=== PATIENT | female | born 1970 | race Caucasian/White ===

== ENCOUNTER → 2023-10-10 06:32 | Outpatient (REF) | payer OTHER, SELFPAY | LOC: HWWDC 06:32 | PROVIDERS: ATTENDING PHYSICIAN Obstetrics & Gynecology; FAMILY PHYSICIAN Nurse Practitioner Family | DX: Z12.31 Encounter for screening mammogram for malignant neoplasm of breast (principal) | CPT/HCPCS: 77063; 77067 ==

== ENCOUNTER → 2024-03-05 09:13 | Outpatient (REF) | payer OTHER, SELFPAY | LOC: HWRAD 09:13 | PROVIDERS: ATTENDING PHYSICIAN Obstetrics & Gynecology; FAMILY PHYSICIAN Nurse Practitioner Family | DX: R10.2 Pelvic and perineal pain (principal) | CPT/HCPCS: 76830; 76856 ==

== ENCOUNTER → 2024-03-12 13:48 | Outpatient (REF) | payer OTHER, SELFPAY | LOC: WDC 13:48 | PROVIDERS: ATTENDING PHYSICIAN Obstetrics & Gynecology; FAMILY PHYSICIAN Nurse Practitioner Family | DX: N64.4 Mastodynia (principal) | CPT/HCPCS: 76642 ==

== ENCOUNTER 2024-04-08 06:21 | Day surgery (SDC) | payer OTHER, SELFPAY ==
[2024-04-08] VITALS (11 sets, daily range): BP systolic 112–134; BP diastolic 48–80; BMI 28.4
[2024-04-08] MEDS: NORMOSOL-R/PLASMALYTE-A 1000 IV (09:01)
[2024-04-08] MEDS: SUBLIMAZE 25 MCG IV (12:11)
[2024-04-08] MEDS: TYLENOL 650 MG PO (13:37)
== END 2024-04-08 13:57 | disposition home or self-care (01) ==
LOC: SDS 06:21
PROVIDERS: ATTENDING PHYSICIAN Obstetrics & Gynecology
DX: N92.4 Excessive bleeding in the premenopausal period (principal); D26.0 Other benign neoplasm of cervix uteri
CPT/HCPCS: 58558; 88305; 88341; 88342

== ENCOUNTER 2024-07-17 10:28 | Emergency (ER) | payer OTHER, SELFPAY ==
[2024-07-17 10:31] VITALS: BP 133/113
[2024-07-17 10:41] VITALS: BP 124/102
[2024-07-17] MEDS: ADENOCARD 6 MG IV (10:45)
[2024-07-17 10:49] VITALS: BP 139/91
--- NOTE | 2024-07-17 10:57 | ED.GENMED ---
History of Present Illness
General
Chief Complaint: Heart Rate Problem
Source: patient
Exam Limitations: none
Time Seen by Provider: 07/17/24 10:44
History of Present Illness
History of Present Illness:
this is a 53yo female who presents with feeling like her SVT is 'acting up'. states she has been feeling ill for last couple days and tested positive for covid on monday. no noted fevers but she did have chills. Patient states that her worst day
was 2 days ago. Does have a history of SVT and has had an ablation. Was on meds in the past really did not work much. She has had to have adenosine in the past maybe up to 3 times. Does not feel short of breath
Past History
Past History
ED Past Medical History: Arrthythmia (SVT) and Psychiatric (anxiety)
Social History
Tobacco: Non-smoker
Employment: Employed
Phy Exam
Physical Exam
Physical Exam:
CONSTITUTIONAL Patient alert and oriented to person, place and time. Well-appearing. Vital signs reviewed.
HEAD atraumatic, normocephalic.
EYES eyelids normal to inspection, Extraocular muscles intact, Conjunctiva normal, Sclera normal.
NECK normal range of motion, Trachea midline, no jugular venous distention.
RESPIRATORY CHEST No respiratory distress noted, Chest expansion equal, Bilateral breath sounds clear.
CARDIOVASCULAR regular and tachycardic
UPPER EXTREMITY range of motion normal, Motor strength normal, no cyanosis, no edema.
LOWER EXTREMITY range of motion normal, Motor strength normal, no cyanosis, no edema.
NEURO Speech normal, No focal motor deficits, Juan Luis coma scale 15, Memory normal, Cranial Nerves intact to screening exam.
SKIN skin warm, dry, and normal in color.
Course
Orders/Labs/Results
Orders:
Orders
07/17/24 10:29
Electrocardiogram (*1) Urgent
Reason for Study: Palpitations
EKG- Treatment ONCE
07/17/24 10:45
Adenosine [Adenocard] 18 mg .ROUTE .STK-MED ONE
07/17/24 10:50
EKG [Electrocardiogram (*1)] Urgent
Reason for Study: Tachycardia
07/17/24 10:51
EKG- Treatment ONCE
0.9% Sodium Chloride 1000 ml [Nss] 1,000 ml IV BOLUS
07/17/24 11:00
Complete Blood Count/With Diff Urgent
Comprehensive Metabolic Panel Urgent
Magnesium Urgent
07/17/24 11:01
Adenosine [Adenocard] 6 mg IV NOW STA
Abnormal Lab Results
07/17/24
11:00
MPV 11.8 H fL
(7.4-10.4)
Absolute Monos (auto) 1.0 H 10^3/uL
(0.1-0.6)
Monocytes % 14.5 H %
(1.7-9.3)
Glucose 131 H mg/dl
(70-99)
AST 45 H U/L
(14-36)
ALT 46 H U/L
(0-35)
07/17/24 11:00
07/17/24 11:00
Vital Signs
Initial and Last Documented VS:
Initial Vital Signs
Temp Pulse Resp BP Pulse Ox
98.1 F 199 18 133/113 100
07/17/24 10:31 07/17/24 10:31 07/17/24 10:31 07/17/24 10:31 07/17/24 10:31
Last Documented Vital Signs
Temp Pulse Resp BP Pulse Ox
98.1 F 101 14 139/91 99
07/17/24 10:31 07/17/24 11:01 07/17/24 10:49 07/17/24 10:49 07/17/24 11:16
MDM/Problems Addressed
Differential Diagnosis Includes:
A-fib, SVT, electrolyte imbalance, hypoxia, pulmonary embolism
MDM/Problems Addressed:
SVT, COVID-19
*Pulse Oximetry
Patient hypoxic: no
*EKG
Interpreted by ED Provider?: Yes
Interpretation: abnormal
Rate: tachycardiac
Rhythm: SVT
Ischemia: non-specific ST changes
*Relief Operator Interpretation
Rate: tachycardiac
Interpretation: abnormal
Rhythm: SVT
*Critical Care Note
Total Time (30-74mins, 75-104mins- exclusive of procedures): 30 minutes
Data Reviewed
Review of Other/Old Records Reveals: Testing (Echocardiogram reviewed from August 2018 showing ejection fraction 55 to 60%)
Source: patient
Prescriptions/Medications Considered But Not Given:
Considered AV block open patient has known history and will follow-up with a director digital
Patient Management
Escalation/DeEscalation of care consider admission/obs:
Considered admission. However, patient has now remained in normal sinus rhythm after given IV adenosine 6 mg. She converted shortly after administration. After period of observation she is stable and labs are unremarkable. Okay for discharge
ED Attending Note
-
Portions of this chart may have been created with voice recognition software.� Occasional wrong word or��sound alike� substitutions may have occurred due to the inherent limitations of voice recognition software.
Discharge Plan
Departure
Patient Disposition: Home (Routine Discharge)
Date of Disposition: 07/17/24
Time of Disposition: 11:42
Patient with high blood pressure during this ER visit?: Yes
Discharge Problem:
SVT (supraventricular tachycardia)
Instructions: Supraventricular tachycardia (SVT), BLOOD PRESSURE
Prescriptions:
No Action
vitamin B complex [B-Complex] 1 TAB tablet
1 tab PO Q48H
cholecalciferol (vitamin D3) 5,000 UNIT capsule
1,000 unit PO Q48H
ascorbic acid (vitamin C) 250 MG tablet
250 mg PO Q48H
coenzyme Q10 [Co Q-10] 200 MG capsule
200 mg PO MOTH
lynn Barraza B.animalis 1 EACH capsule
1 ea PO Q48H
multivitamin Tablet
1 tab PO DAILY
sumatriptan succinate 50 mg Tablet
50 mg PO PRN PRN (Reason: Migraine)
misoprostol 200 mcg Tablet
200 mcg PO ONCE
Referrals:
Abbey Feliz CRNP [Family Provider] -
Activity Restrictions/Additional Instructions:
Return immediately for palpitations, shortness of breath, chest pain, passing out episode, palpitations or any other concerns. Please see your director digital in the next 1 week for follow-up and reevaluation.
Interventions
Interventions:
*Risk Screen - Suicide Last Done: 07/17/24 10:31
*General Assessment Last Done: 07/17/24 10:31
*Neglect/Abuse Screening Last Done: 07/17/24 10:31
*ED COVID-19 Vaccine History Last Done: 07/17/24 10:56
ED- Pulmonary Assessment Last Done: 07/17/24 11:16
ED- Cardiac Assessment Last Done: 07/17/24 11:16
Discharge Date and Time
Print Language: KAZAKH
[2024-07-17 11:00] VITALS: BP 120/77
[2024-07-17 11:01] VITALS: BMI 26.9
[2024-07-17] MEDS: NSS 1000 IV (11:05)
[2024-07-17 11:14] LABS: % Basophils 0.5 % (0-2); % Eosinophils 0.5 % (0-6); % Immature Granulocytes 0.5 % (0-0.5); % Lymphocytes 21.5 % (20.5-51.1); % Monocytes 14.5 % (1.7-9.3); % Neutrophils 62.5 % (42.2-75.2); Absolute Lymphocytes 1.4 10^3/uL (1.2-3.4); Absolute Neutrophils 4.1 10^3/uL (1.4-6.5); Hematocrit 42.5 % (37.0-47.0); Hemoglobin 14.3 g/dL (12.0-16.0); Mean Corp Hgb Conc. 33.6 g/dL (33.0-37.0); Mean Corpuscular Hgb 29.7 pg (27.0-31.0); Mean Corpuscular Volume 88.4 fL (81.0-99.0); Mean Platelet Volume 11.8 fL (7.4-10.4); Nucleated Red Blood Cells % 0 %; Platelet Count 221 10^3/uL (130-400); Red Blood Cell Count 4.81 10^6/uL (4.20-5.40); Red Cell Dist. Width 13.6 % (11.5-14.5); White Blood Cell Count 6.6 10^3/uL (4.8-10.8)
[2024-07-17 11:29] LABS: ALT (SGPT) 46 U/L (0-35); AST (SGOT) 45 U/L (14-36); Albumin 4.9 g/dl (3.5-5.0); Alkaline Phosphatase 78 U/L (38-126); Blood Urea Nitrogen 13 mg/dl (7-17); Calcium 9.3 mg/dl (8.4-10.2); Carbon Dioxide 23 mmol/L (22-30); Chloride 99 mmol/L (98-107); Estimated Creatinine Clearance 69 ml/min; Glucose 131 mg/dl (70-99); Magnesium 1.7 mg/dl (1.6-2.3); Sodium 137 mmol/L (135-145); Total Bilirubin 0.4 mg/dl (0.2-1.3); Total Protein 7.9 g/dl (6.3-8.2); eGFR > 60.00
== END 2024-07-17 12:00 | disposition home or self-care (01) ==
LOC: EMR 10:28
PROVIDERS: EMERGENCY PHYSICIAN Emergency Medicine; FAMILY PHYSICIAN Nurse Practitioner Family
DX: I47.10 Supraventricular tachycardia, unspecified (principal); R03.0 Elevated blood-pressure reading, without diagnosis of hypertension
CPT/HCPCS: 99284; 96374; 80053; 83735; 85025; 93005; J0153

== ENCOUNTER → 2024-08-13 07:05 | Outpatient (REF) | payer OTHER, SELFPAY | LOC: RCS 07:05 | PROVIDERS: ATTENDING PHYSICIAN Internal Medicine Cardiovascular Disease; FAMILY PHYSICIAN Nurse Practitioner Family | DX: I47.10 Supraventricular tachycardia, unspecified (principal) | CPT/HCPCS: 93306 ==

== ENCOUNTER 2024-08-21 19:33 | Inpatient (IN) | payer OTHER, SELFPAY ==
[2024-07-01 11:25] LABS: % Basophils 0.8 % (0-2); % Eosinophils 3.3 % (0-6); % Immature Granulocytes 0.2 % (0-0.5); % Lymphocytes 42.3 % (20.5-51.1); % Monocytes 9.8 % (1.7-9.3); % Neutrophils 43.6 % (42.2-75.2); Absolute Eosinophils 0.2 10^3/uL (0-0.7); Absolute Monocytes 0.5 10^3/uL (0.1-0.6); Absolute Neutrophils 2.1 10^3/uL (1.4-6.5); Hematocrit 38.9 % (37.0-47.0); Hemoglobin 12.6 g/dL (12.0-16.0); Mean Corp Hgb Conc. 32.4 g/dL (33.0-37.0); Mean Corpuscular Hgb 29.7 pg (27.0-31.0); Mean Corpuscular Volume 91.7 fL (81.0-99.0); Mean Platelet Volume 11.7 fL (7.4-10.4); Nucleated Red Blood Cells % 0 %; Platelet Count 216 10^3/uL (130-400); Red Blood Cell Count 4.24 10^6/uL (4.20-5.40); Red Cell Dist. Width 13.2 % (11.5-14.5); White Blood Cell Count 4.8 10^3/uL (4.8-10.8)
[2024-07-01 11:56] LABS: Blood Urea Nitrogen 23 mg/dl (7-17); Calcium 9.2 mg/dl (8.4-10.2); Carbon Dioxide 27 mmol/L (22-30); Chloride 99 mmol/L (98-107); Glucose 90 mg/dl (70-99); Potassium 4.4 mmol/L (3.5-5.1); Sodium 134 mmol/L (135-145); eGFR > 60.00
[2024-07-01 12:04] LABS: Beta HCG Quantitative 3.75 mIU/ml
[2024-07-01 12:38] VITALS: BMI 28.2
[2024-08-14 09:11] LABS: Hematocrit 39.5 % (37.0-47.0); Hemoglobin 12.9 g/dL (12.0-16.0); Mean Corp Hgb Conc. 32.7 g/dL (33.0-37.0); Mean Corpuscular Hgb 29.1 pg (27.0-31.0); Mean Corpuscular Volume 89.2 fL (81.0-99.0); Mean Platelet Volume 12.2 fL (7.4-10.4); Platelet Count 186 10^3/uL (130-400); Red Blood Cell Count 4.43 10^6/uL (4.20-5.40); Red Cell Dist. Width 12.9 % (11.5-14.5); White Blood Cell Count 4.3 10^3/uL (4.8-10.8)
[2024-08-14 09:29] LABS: Blood Urea Nitrogen 24 mg/dl (7-17); Calcium 9.4 mg/dl (8.4-10.2); Carbon Dioxide 28 mmol/L (22-30); Chloride 99 mmol/L (98-107); Estimated Creatinine Clearance 79 ml/min; Glucose 89 mg/dl (70-99); Potassium 4.3 mmol/L (3.5-5.1); Sodium 137 mmol/L (135-145); eGFR > 60.00
[2024-08-14 09:46] LABS: Beta HCG Quantitative 4.36 mIU/ml
[2024-08-14 10:26] LABS: % Basophils 0.9 % (0-2); % Eosinophils 5.1 % (0-6); % Lymphocytes 52.1 % (20.5-51.1); % Monocytes 11.1 % (1.7-9.3); % Neutrophils 30.8 % (42.2-75.2); Absolute Eosinophils 0.2 10^3/uL (0-0.7); Absolute Lymphocytes 2.3 10^3/uL (1.2-3.4); Absolute Monocytes 0.5 10^3/uL (0.1-0.6); Absolute Neutrophils 1.3 10^3/uL (1.4-6.5); Nucleated Red Blood Cells % 0 %
[2024-08-14 13:30] VITALS: BMI 27.9
[2024-08-20] VITALS (15 sets, daily range): BP systolic 116–140; BP diastolic 56–86; BMI 27.9
[2024-08-20] MEDS: TYLENOL 1000 MG PO ×3 (09:07→22:27)
[2024-08-20] MEDS: NEURONTIN 300 MG PO (09:07)
[2024-08-20] MEDS: NORMOSOL-R/PLASMALYTE-A 1000 IV (09:08)
--- NOTE | 2024-08-20 10:44 | W.SUR.PREOP ---
Pre-Operative Surgical Note
-
I have examined this patient prior to the performance of the scheduled procedure.
The patient's condition is unchanged from the time of the current History and
Physical and the patient is able to undergo the scheduled procedure.
Spoke with obstetrician/gynecologist onc prior to today- reviewed path and felt no need for obstetrician/gynecologist onc involvement.
Discussed with patient this am.
--- NOTE | 2024-08-20 14:03 | W.IMMPOSTOP ---
Surgical Immed Post Op Note
-
Primary Surgeon: Kimi Greenberg DO
Patient Information Coordinator: CESARIO Morris
Pre-op Diagnosis: Postmenopausal bleeding, fibroid uterus
Post-op Diagnosis: same
Procedure Performed: [facility] BSO
Anesthesia Type: general ET Dr. Anguiano
Specimen / Cultures: uterus, cervix, bilateral tubes and ovaries.
Estimated Blood Loss: 20ml
Complications: none
Operative Findings: Enlarged fibroid uterus, normal appearing cervix, fallopian tubes and bilateral ovaries.
Right periurethral superficial laceration and right upper vaginal abrasion-likely from retraction and removal of specimen from vagina. Sutured
with good hemostasis.
Vaginal packing placed.
Counts correct times 2.
Ayala draining clear urine.
[2024-08-20] MEDS: DILAUDID 0.5 MG IV ×2 (15:10→16:13)
[2024-08-20] MEDS: TORADOL 15 MG IV ×2 (15:32→21:28)
--- NOTE | 2024-08-20 17:29 | PTCARENOTE ---
pt awake alert oriented, speaks slowly, asked for crackers, c/o cramping, 5 small incisions are clean dry and intact with dermabond, minimal vag bleeding, pad has small amounts of old blood on it, +hypoactive BS, paez draining clear yellow urine,
INT patent, sequential stockings, pump on, call krishnan in bed, pt's at bedside, pt will order broth and jello
[2024-08-20] MEDS: ROXICODONE 5 MG PO (18:40)
--- NOTE | 2024-08-20 18:44 | PTCARENOTE ---
pt given Na for c/o pain, pt rohith. broth, emelia naun and jello, no vag bleeding at this time
[2024-08-20] MEDS: COLACE 100 MG PO (20:07)
--- NOTE | 2024-08-20 21:40 | PTCARENOTE ---
pt resting quietly in bed. complaining of aching and cramping in abdomen and right lower back. pt stated her pain was relieved earlier with roxicodone and she could sleep. pt recently medicated with Toradol. pt using ice packs on back and abdomen.
incision lines clean, dry, intact with dermabond. scant amount of vaginal bleeding on pad. paez catheter draining clear yellow urine. sequential thigh high pumps on. pt tolerated jello and broth for dinner, eating crackers now.
[2024-08-21] VITALS (20 sets, daily range): BP systolic 122–153; BP diastolic 57–89
[2024-08-21] MEDS: ROXICODONE 5 MG PO ×3 (00:05→16:33)
[2024-08-21] MEDS: TORADOL 15 MG IV ×2 (03:21→08:38)
[2024-08-21] MEDS: TYLENOL 1000 MG PO (04:40)
[2024-08-21 05:00] LABS: % Basophils 0.2 % (0-2); % Immature Granulocytes 0.3 % (0-0.5); % Lymphocytes 16.5 % (20.5-51.1); % Monocytes 9.4 % (1.7-9.3); % Neutrophils 73.6 % (42.2-75.2); Absolute Lymphocytes 1.6 10^3/uL (1.2-3.4); Absolute Monocytes 0.9 10^3/uL (0.1-0.6); Absolute Neutrophils 7.2 10^3/uL (1.4-6.5); Hematocrit 36.3 % (37.0-47.0); Hemoglobin 11.8 g/dL (12.0-16.0); Mean Corp Hgb Conc. 32.5 g/dL (33.0-37.0); Mean Corpuscular Hgb 29.4 pg (27.0-31.0); Mean Corpuscular Volume 90.5 fL (81.0-99.0); Mean Platelet Volume 11.5 fL (7.4-10.4); Nucleated Red Blood Cells % 0 %; Platelet Count 226 10^3/uL (130-400); Red Blood Cell Count 4.01 10^6/uL (4.20-5.40); Red Cell Dist. Width 13.1 % (11.5-14.5); White Blood Cell Count 9.8 10^3/uL (4.8-10.8)
[2024-08-21 05:21] LABS: Blood Urea Nitrogen 17 mg/dl (7-17); Carbon Dioxide 27 mmol/L (22-30); Chloride 98 mmol/L (98-107); Estimated Creatinine Clearance 68 ml/min; Potassium 4.4 mmol/L (3.5-5.1); Sodium 135 mmol/L (135-145)
--- NOTE | 2024-08-21 06:13 | PTCARENOTE ---
paez catheter dc at 0600 emptied 250 ml clear yellow urine. catheter care provided with pre-packaged wipes. small amount of blood on pad. changed out aldo pads. pt now resting quietly in bed.
[2024-08-21] MEDS: COLACE 100 MG PO ×2 (07:17→19:48)
--- NOTE | 2024-08-21 08:49 | PTCARENOTE ---
At 0717, pt c/o abdomen pain of a 7 across incision lines. PRN Roxicodone given. Incision lines are CDI with demabond. Pt tolerated a regular diet. Ayala was taken out at 0600. PT is DTV by 1200. Pt was encouraged to drink. BP was 153/72 pulse 65
at 8a, At 845am, scheduled toradol was given. PT rating pain a 6-7. BP was 156/[address] Greenberg was notified. Will continue to monitor.
--- NOTE | 2024-08-21 09:24 | W.PN.OBG.DWH ---
Today's Communication / Plan
-
Recommend to OR for EUA and control of bleeding.
Assessment/Plan
-
POD#1 S/P RA TLH BSO
Vaginal bleeding this am-more than what is expected postop.
-had some bleeding from vaginal cuff at time of surgery which was controlled prior to leaving OR.
-Recommend exam under anesthesia and control of bleeding. Reviewed and consented patient.
-OR and Blood consent has been obtained.
-vitals are stable and her hgb is 11.8 this am
-consented for OR.
-Sent stat labs for cbc, cmp, PT/INR, fibrinogen
OR notified. Pt ate 07:00
I called and spoke to her to let him know of findings and plan.
Subjective Data
-
POD#1
Called by RN. Pt was up to void this am and blood dripping through packing onto pad.
Ayala was removed this am.
Pt reports she had some slight lightheadedness when she got up to try to void
Objective Data
-
Laboratory Results
08/21/24 04:38
08/21/24 04:38
Vital Signs
Temp Pulse Resp BP Pulse Ox
98.3 F 62 20 153/72 99
08/21/24 08:23 08/21/24 08:44 08/21/24 08:44 08/21/24 08:23 08/21/24 04:45
VSS afeb BP this am 153/72 156/78, repeat BP 135/69 pulse 78
AAO
Abd: soft NDNT inc cdi
Vag packing soaked through BRB
Bedside US performed by ky- bladder full. No evidence of free fluid in abdomen.
Ext: no calf pain
Ayala inserted by me
--- NOTE | 2024-08-21 09:27 | PTCARENOTE ---
Pt rang call krishnan at 0915 and said she was bleeding. Pt pad, chux and bedsheet were noted to have blood on them. Pt was cleaned and was assisted to bathroom to void. Pt was unable to void. Dr. Greenberg was notified and in room while pt was in the
bathroom. Pt assisted back to bed and pericare was completed. NSS was hung at 125ml/hr. BP was taken at 0920, 135/[address] Greenberg requested US. Machine was brought to room.
--- NOTE | 2024-08-21 09:47 | PTCARENOTE ---
0945, STAT labs CBC with Diff, CMP, Fibrinogen, PT and PTT were drawn. Pt is still bleeding. Pericare provided. Dr Greenberg at bedside.
[2024-08-21] MEDS: TYLENOL PO (09:51)
[2024-08-21 09:59] LABS: % Basophils 0.2 % (0-2); % Eosinophils 0.2 % (0-6); % Immature Granulocytes 0.3 % (0-0.5); % Lymphocytes 20.7 % (20.5-51.1); % Neutrophils 70.6 % (42.2-75.2); Absolute Lymphocytes 2.6 10^3/uL (1.2-3.4); Absolute Neutrophils 8.8 10^3/uL (1.4-6.5); Hematocrit 34.6 % (37.0-47.0); Hemoglobin 11.6 g/dL (12.0-16.0); Mean Corp Hgb Conc. 33.5 g/dL (33.0-37.0); Mean Corpuscular Volume 89.4 fL (81.0-99.0); Mean Platelet Volume 11.7 fL (7.4-10.4); Nucleated Red Blood Cells % 0 %; Platelet Count 212 10^3/uL (130-400); Red Blood Cell Count 3.87 10^6/uL (4.20-5.40); Red Cell Dist. Width 13.2 % (11.5-14.5); White Blood Cell Count 12.4 10^3/uL (4.8-10.8)
[2024-08-21 10:10] LABS: ALT (SGPT) 25 U/L (0-35); AST (SGOT) 33 U/L (14-36); Albumin 4.4 g/dl (3.5-5.0); Alkaline Phosphatase 59 U/L (38-126); Blood Urea Nitrogen 17 mg/dl (7-17); Calcium 9.2 mg/dl (8.4-10.2); Carbon Dioxide 24 mmol/L (22-30); Chloride 101 mmol/L (98-107); Estimated Creatinine Clearance 76 ml/min; Glucose 117 mg/dl (70-99); INR 1.04; PT 14.1 Sec (11.4-14.6); Potassium 4.1 mmol/L (3.5-5.1); Sodium 134 mmol/L (135-145); Total Bilirubin 0.9 mg/dl (0.2-1.3); Total Protein 6.8 g/dl (6.3-8.2); eGFR > 60.00
[2024-08-21 10:11] LABS: APTT 21.7 Sec (23.4-35.0); Fibrinogen 318 MG/DL (199-459)
--- NOTE | 2024-08-21 10:22 | PTCARENOTE ---
Type and screen were drawn. Report was given to Arina HERNÁNDEZ in PACU. Pt transfered to PACU at 1015.
--- NOTE | 2024-08-21 10:29 | W.PN.UPDATE ---
Update Note
Progress Note Update
Packing was not removed as it is soaked through and bright blood into pad.
Feel more appropriate to do under anesthesia given amount of blood.
Hgb 11.6 ( essentially no change from 4am blood draw 11.8)
Plt 212
INR 1.04, PT 14.1
fibrinogen 318
creatinine 0.8
OR case finishing up so will be going into that room as soon as ready.
Pt moved to holding area.
Has paez in , SCDs on.
Dr. Jarrell saw pt. Plans to intubate. Agree with plan.
Reassurance to patient. Labs stable. Did not have bleeding through the night and just started heavy this am.
Suspect vaginal source-possible pulled stitch, bleeding from vaginal cuff.
--- NOTE | 2024-08-21 11:50 | CM ---
Attempted to see pt to complete IA
Team with pt - plan OR intervention - unable to see at this time
Will attempt to see pt at another time
--- NOTE | 2024-08-21 13:19 | W.IMMPOSTOP ---
Surgical Immed Post Op Note
-
Primary Surgeon: Kimi Greenberg DO
Assisting Surgeon: n/a
Pre-op Diagnosis: Postop vaginal bleeding
Post-op Diagnosis: same
Procedure Performed: EUA and control of vaginal bleeding
Anesthesia Type: general ET Dr. Anguiano
Specimen / Cultures: none
Estimated Blood Loss: 20 ml
Complications: none
Operative Findings: A few minor areas of oozing, superficially in vagina. Minor ooze from right cuff corner and along upper vaginal cuff on mucosa of vagina.
Sutured to reinforce cuff at angles and in areas of oozing. No bleeding for over 40 min observing. Donnie placed. No packing placed in order to better monitoring her bleeding
and due to concern about causing irritation and bleeding.
She did received multiple doses toradol so need to consider plt function issue.
Stable to recovery.
findings reviewed with pt when awake and her .
[2024-08-21] MEDS: DILAUDID 0.25 MG IV (13:43)
--- NOTE | 2024-08-21 14:24 | W.PN.UPDATE ---
Update Note
Progress Note Update
CTSP in pacu.
WRAPPING MACHINE OPERATOR reporting blood noted on peripad, moderate.
Came to see pt.
some blood onto kylee pad
Spec placed, small amount blood in vault approx 2 large qtip swab. Small less than dime size clot.
No obvious source.
Monsels placed and vaginal packing.
Ordered CT angiogram to look for bleeding.
Ordered labs.
--- NOTE | 2024-08-21 14:28 | W.PN.UPDATE ---
Update Note
Progress Note Update
Called and spoke with to update on her status
[2024-08-21 14:39] LABS: % Basophils 0.2 % (0-2); % Eosinophils 0.1 % (0-6); % Immature Granulocytes 0.3 % (0-0.5); % Lymphocytes 8.1 % (20.5-51.1); % Monocytes 3.4 % (1.7-9.3); % Neutrophils 87.9 % (42.2-75.2); Absolute Lymphocytes 1.1 10^3/uL (1.2-3.4); Absolute Monocytes 0.5 10^3/uL (0.1-0.6); Absolute Neutrophils 11.8 10^3/uL (1.4-6.5); Hematocrit 32.7 % (37.0-47.0); Hemoglobin 10.9 g/dL (12.0-16.0); Mean Corp Hgb Conc. 33.3 g/dL (33.0-37.0); Mean Corpuscular Hgb 30.3 pg (27.0-31.0); Mean Corpuscular Volume 90.8 fL (81.0-99.0); Mean Platelet Volume 11.7 fL (7.4-10.4); Nucleated Red Blood Cells % 0 %; Platelet Count 183 10^3/uL (130-400); Red Cell Dist. Width 13.1 % (11.5-14.5); White Blood Cell Count 13.4 10^3/uL (4.8-10.8)
[2024-08-21 14:49] LABS: INR 1.11; PT 14.8 Sec (11.4-14.6)
[2024-08-21 14:54] LABS: ALT (SGPT) 31 U/L (0-35); AST (SGOT) 46 U/L (14-36); Albumin 3.4 g/dl (3.5-5.0); Alkaline Phosphatase 68 U/L (38-126); Blood Urea Nitrogen 16 mg/dl (7-17); Calcium 8.1 mg/dl (8.4-10.2); Carbon Dioxide 28 mmol/L (22-30); Chloride 105 mmol/L (98-107); Estimated Creatinine Clearance 76 ml/min; Glucose 135 mg/dl (70-99); Potassium 4.3 mmol/L (3.5-5.1); Sodium 137 mmol/L (135-145); Total Bilirubin 0.6 mg/dl (0.2-1.3); Total Protein 5.8 g/dl (6.3-8.2); eGFR > 60.00
--- NOTE | 2024-08-21 18:35 | W.PN.OBG.DWH ---
Today's Communication / Plan
-
serial h/h
Kpad for back prn
Pain mgmt
Monitor for brgith red bleeding saturated packing.
Leave paez in place until further isntructions
Plan to remove packing in am.
NPO after midnight
Assessment/Plan
-
Postop bleeding POD#1 S/P RA TLH BSO now S/P EUA and placing some sutures along vaginal cuff.
- no active bleeding was noted in OR only small amount of venous ooze. Several small areas of mucosal oozing were noted
which were sutured or bovied with hemostasis. Had subsequent bleeding in PACU.
-Spec exam revealed small amount of blood upper vagina in PACU. No obvious source of bleeding seen. Monsels and vaginal packing placed.
-Pt sent for CT angiogram-no active bleeding noted. No intraperitoneal bleeding, fluid collection.
Presently packing appears dry. No significant drop in hgb.
I discussed case with Jin Acosta. I reviewed hx and recent event. Expressed I am concerned that oozing may be coming from deeper layer and there may be risk for
continued oozing. I asked his opinion regarding whether packing may have obscured an active bleed and also whether it would be worthwhile to
perform embolization as added measure since she had 2 episodes of bleeding and unable to identify exact source. He felt that an active bleed
would have shown. Area may be very small. Birney best to observe for bleeding and consider embolization of iliac vessels if has continued bleeding.
I did discuss all of this with Patti and her , Juan. I explained that difficulty is identifying what is probable slow oozing. EUA did not reveal
an obvious source other than minor oozing.
Dx laparoscopy may have low yield as well given no intraperitoneal collection.
At this point, plan to monitor serial hgb and also monitor for bleeding.
Plan to remove packing in am and observe for bleeding.
Discussed possible embolization if has further significant bleeding.
May have clears. Rec NPO after midnight.
Answered their questions. They agree with plan.
Subjective Data
-
Pt seen-sitting in bed and present.
Feels soreness in vagina and left side.
Eating broth. Sore throat.
I have been monitoring pt labs and imaging through day.
Objective Data
-
Laboratory Results
08/21/24 14:30
08/21/24 14:31
Vital Signs
Temp Pulse Resp BP Pulse Ox
97.1 F 68 18 141/69 97
08/21/24 18:32 08/21/24 18:32 08/21/24 18:32 08/21/24 18:32 08/21/24 18:32
VSS afeb
I/Os good, copious clear urine
Cor regular
Pulm: clear
abd: soft NDNT inc cdi
Vaginal packing has scant brown stain at vaginal opening No bleeding onto pad
Ext: no calf pain, scds on
hgb 10.9
[2024-08-21] MEDS: MORPHINE SULFATE 2 MG IV (18:38)
--- NOTE | 2024-08-21 20:59 | PTCARENOTE ---
pt resting quietly at 1925 visiting with . pt using kpad for back pain, pt took morphine at 1838. no vaginal bleeding noted on pad. vaginal packing visible with no active bleeding noted. paez catheter draining clear yellow urine. IV sites in
left hand and left AC patent and secured. thigh high sequential pumps on. incision lines clean, dry, intact with dermabond. will continue to monitor for vaginal bleeding.
[2024-08-22] MEDS: MORPHINE SULFATE 2 MG IV ×2 (00:51→07:08)
[2024-08-22 03:25] VITALS: BP 130/71
[2024-08-22 05:22] LABS: % Basophils 0.1 % (0-2); % Eosinophils 0.1 % (0-6); % Immature Granulocytes 0.4 % (0-0.5); % Lymphocytes 27.3 % (20.5-51.1); % Monocytes 7.6 % (1.7-9.3); % Neutrophils 64.5 % (42.2-75.2); Absolute Lymphocytes 2.9 10^3/uL (1.2-3.4); Absolute Monocytes 0.8 10^3/uL (0.1-0.6); Absolute Neutrophils 6.8 10^3/uL (1.4-6.5); Hematocrit 30.2 % (37.0-47.0); Mean Corp Hgb Conc. 33.1 g/dL (33.0-37.0); Mean Corpuscular Hgb 29.4 pg (27.0-31.0); Mean Corpuscular Volume 88.8 fL (81.0-99.0); Mean Platelet Volume 11.5 fL (7.4-10.4); Nucleated Red Blood Cells % 0 %; Platelet Count 193 10^3/uL (130-400); Red Cell Dist. Width 13.3 % (11.5-14.5); White Blood Cell Count 10.6 10^3/uL (4.8-10.8)
[2024-08-22 05:25] LABS: ALT (SGPT) 25 U/L (0-35); AST (SGOT) 25 U/L (14-36); Albumin 3.8 g/dl (3.5-5.0); Alkaline Phosphatase 64 U/L (38-126); Blood Urea Nitrogen 15 mg/dl (7-17); Calcium 8.9 mg/dl (8.4-10.2); Carbon Dioxide 28 mmol/L (22-30); Chloride 102 mmol/L (98-107); Estimated Creatinine Clearance 76 ml/min; Glucose 99 mg/dl (70-99); Potassium 4.3 mmol/L (3.5-5.1); Sodium 137 mmol/L (135-145); Total Bilirubin 0.7 mg/dl (0.2-1.3); eGFR > 60.00
--- NOTE | 2024-08-22 06:23 | PTCARENOTE ---
pt has had no vaginal bleeding through the night. vaginal packing has scant brown stain, no active bleeding noted.
--- NOTE | 2024-08-22 06:46 | W.PN.OBG.DWH ---
Today's Communication / Plan
-
packing removed.
OOB and monitor for bleeding
If no heavy bleeding, may have breakfast and dc home this afternoon.
Assessment/Plan
-
POD#2 S/P RA TLH BSO
S/P postop bleeding and EUA, suturing/control of bleeding yesterday
-no active bleeding this am.
- will need to monitor. If stable, then will dc paez
-pt should remain NPO this am until OOB and making sure no significant bleeding
Hgb 10 (stable)
-postop analgesia
If stable in terms of bleeding, may be discharged later today.
Subjective Data
-
POD#2
Feeling ok. Hungry.
No dizziness or lightheadedness
Objective Data
-
Laboratory Results
08/22/24 04:51
08/22/24 04:52
Vital Signs
Temp Pulse Resp BP Pulse Ox
98.4 F 64 18 130/71 96
08/22/24 03:25 08/22/24 03:25 08/22/24 03:25 08/22/24 03:25 08/22/24 03:25
VSS afeb BPs 120-130s/60-70s
Cor regular
Pulm: clear
Abd: soft NDNT inc cdi
Ext no calf pain
Vag packing dry, no red blood. Packing removed-mostly dry, areas scant dark staining (likely from Monsels)
No bleeding after packing removed.
Ext: no calf pain
--- NOTE | 2024-08-22 07:48 | W.PN.UPDATE ---
Update Note
Progress Note Update
Checked in on patient since removal packing.
OOB in chair
NAD
No red bleeding since OOB and packing removed
Reviewed expectations for going home, activity restrictions and limitations
Can expect some dark discharge from Monsels soln but should not be bleeding heavily like a period.
Recommend postop visit in 2 wks. To call with any concerns.
Reviewed dc instructions in anticipation will go home later today.
Will sign out to Dr. Comer
[2024-08-22 08:40] VITALS: BP 132/68
--- NOTE | 2024-08-22 10:15 | CM ---
Met with pt at bedside
Pt reports she lives with her in a 2 story home; 2 steps to enter, 12 steps to enter
Independent, volunteers PT, drives
DME - none
SNF/HH - no past hx
Has ride at discharge
PCP - Abbey Feliz
Pharm - [place]
Plan - anticipate home no needs
[2024-08-22 11:13] VITALS: BP 141/69
[2024-08-22] MEDS: COLACE PO (11:35)
--- NOTE | 2024-08-22 13:50 | PTCARENOTE ---
Per prior RN, Fátima Fraire, Pt ambulated indep to YOHANA jennings d/c'd @ 0830, Pt tolerated a clear liquid breakfast. This RN assumed care at 1300
[2024-08-22 14:13] VITALS: BP 125/77
[2024-08-22] MEDS: ROXICODONE 5 MG PO (14:26)
[2024-08-22] MEDS: MYLICON 80 MG PO (14:26)
--- NOTE | 2024-08-22 14:52 | PTCARENOTE ---
Dr Comer at bedside. Pt cleared for discharge. D/C instructions reviewed. Pt states understanding.
--- NOTE | 2024-08-22 16:30 | W.PN.UPDATE ---
Update Note
Progress Note Update
I saw patient approximately 2 hours ago. She was sitting in the chair with nurse in the room. She has not had any significant BRB. She has been up OOB to the bathroom to void. +flatus. Tolerating a small amount of PO intake. No n/v/f/c. Says she has
soreness over her abdomen, especially over the supraumbilical incision. Is awaiting her next dose of pain medication. Overall ready for dc home now.
Vitals: 125/77 P75 R18 T98.4
Gen: nad, well appearing, sitting in chair
Abd: soft, +appropriate ttp, Incisions c/d/i
Patient is stable for dc home. I reviewed d/c instructions with her. Reviewed reasons to call- Bleeding, infection. Her Rx have already been sent to the pharmacy.
--- NOTE | 2024-09-12 18:08 | PN.CDI ---
CDI
- -
CDI:
Physician Documentation Request
Admit Date: 08/21/24 19:33
Dear Doctor Dionicio,
Please review the following and provide your response in the progress notes.
Clinical Indicators:
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
Please indicate in your progress notes if you are in agreement that the above diagnosis is valid for this patient:
____ - Well-differentiated endometrioid adenocarcinoma is a valid diagnosis (Please include it in your progress notes)
____ - Well-differentiated endometrioid adenocarcinoma is not a valid diagnosis for this patient
____ - Well-differentiated endometrioid adenocarcinoma is not yet confirmed but remains a suspected condition
____ - Other
____ - Unable to determine
Use of terms such as suspected, likely, concern for, or probable (associated with a specific diagnosis that is being evaluated, monitored, or treated as if it exists) are acceptable and can be coded in the inpatient setting, when documented at the
time of discharge.
Thank you,
Brooke Thompson
Asphalt Surface Heater Operator
Please use your independent medical judgment in providing your response.
--- NOTE | 2024-09-15 20:32 | W.PN.UPDATE ---
Update Note
Progress Note Update
Final pathology shows well differentiated adenocarcinoma with mucinous features. This diagnosis is valid for this patient.
== END 2024-08-22 15:27 | disposition home or self-care (01) | DRG 909 ==
LOC: LDRP 19:33
PROVIDERS: ADMITTING PHYSICIAN Obstetrics & Gynecology; FAMILY PHYSICIAN Nurse Practitioner Family
PROC: 8E0W4CZ Robotic Assisted Procedure of Trunk Region, Percutaneous Endoscopic Approach (ICD-10-PCS; 2024-08-20)
PROC: 0UT9FZZ Resection of Uterus, Via Natural or Artificial Opening With Percutaneous Endoscopic Assistance (ICD-10-PCS; 2024-08-20)
PROC: 0UT2FZZ Resection of Bilateral Ovaries, Via Natural or Artificial Opening With Percutaneous Endoscopic Assistance (ICD-10-PCS; 2024-08-20)
PROC: 0UT7FZZ Resection of Bilateral Fallopian Tubes, Via Natural or Artificial Opening With Percutaneous Endoscopic Assistance (ICD-10-PCS; 2024-08-20)
PROC: 0W3R7ZZ Control Bleeding in Genitourinary Tract, Via Natural or Artificial Opening (ICD-10-PCS; 2024-08-22)
DX: N99.820 Postprocedural hemorrhage of a genitourinary system organ or structure following a genitourinary system procedure (principal); C54.1 Malignant neoplasm of endometrium; D25.1 Intramural leiomyoma of uterus; N95.0 Postmenopausal bleeding; Y83.6 Removal of other organ (partial) (total) as the cause of abnormal reaction of the patient, or of later complication, without mention of misadventure at the time of the procedure
CPT/HCPCS: 88307; 36415; 74174; 80048; 80051; 80053; 82565; 83001; 83002; 84520; 84702; 85025; 85384; 85610; 85730; 86850; 86900; 86901; 86920; 88341; 88342; 88360; 93005; Q9967

== ENCOUNTER → 2024-11-13 11:07 | Outpatient (REF) | payer OTHER, SELFPAY | LOC: HWRAD 11:07 | PROVIDERS: ATTENDING PHYSICIAN Nurse Practitioner Family | DX: R63.4 Abnormal weight loss (principal) | CPT/HCPCS: 71046 ==

== ENCOUNTER → 2025-01-15 11:21 | Outpatient (REF) | payer OTHER, SELFPAY | LOC: MRI 3T 11:21 | PROVIDERS: ATTENDING PHYSICIAN Physician Assistant Surgical; FAMILY PHYSICIAN Nurse Practitioner Family | DX: C54.1 Malignant neoplasm of endometrium (principal); Z80.41 Family history of malignant neoplasm of ovary | CPT/HCPCS: 72197; A9575 ==

== ENCOUNTER → 2025-01-28 06:38 | Outpatient (REF) | payer OTHER, SELFPAY | LOC: HWRAD 06:38 | PROVIDERS: ATTENDING PHYSICIAN Nurse Practitioner Family | DX: R63.4 Abnormal weight loss (principal) | CPT/HCPCS: 76700 ==